=== PATIENT | female | born 1970 | race Caucasian/White ===

== ENCOUNTER → 2020-07-19 | Outpatient (CLI) | payer OTHER ==
[~2020-07-19] MED LIST: CETI10CA PO; CITA10TA8 PO; DOXY100T PO; IPRA15SP NS; LEVO50TA PO; MELA1TAB7 PO
== END | disposition home or self-care (01) ==
LOC: STAR 15:45
PROVIDERS: ATTEND Specialist
DX: Z01.812 Encounter for preprocedural laboratory examination (principal); Z20.828 Contact with and (suspected) exposure to other viral communicable diseases; N81.85 Cervical stump prolapse; Z80.41 Family history of malignant neoplasm of ovary
CPT/HCPCS: 36415; 87635

== ENCOUNTER 2020-07-23 05:45 | Day surgery (SDC) | payer OTHER ==
[~2020-07-23] VITALS: Ht 154.9 cm; Wt 52.0 kg
[2020-07-23] MEDS ORDERED: CHLORHEXIDINE 15 ML UDC MM STA (06:05)
[2020-07-23] MEDS ORDERED: LACTATED RINGERS 1,000 ML IV SCH (06:49)
[2020-07-23] MEDS ORDERED: SCOPOLAMINE 1MG PATCH TD ONE (07:12)
[2020-07-23] MEDS ORDERED: FENTANYL PF 100 MCG/2ML ONE ×6 (07:19→10:23)
[2020-07-23] MEDS ORDERED: PROPOFOL 10 MG/ML, 20ML ONE (07:20)
[2020-07-23] MEDS ORDERED: ROCURONIUM 10MG/ML,5ML ONE ×2 (07:20)
[2020-07-23] MEDS ORDERED: LIDOCAINE-MPF 2% ,5ML ONE (07:20)
[2020-07-23] MEDS ORDERED: ESTROGENS CONJUGATED VAG CRM 0.625MG/1G, 30GM ONE (07:21)
[2020-07-23] MEDS ORDERED: FLUORESCEIN SODIUM 500 MG/5 ML ONE (07:21)
[2020-07-23] MEDS ORDERED: INDIGO CARMINE 0.8%, 5ML ONE (07:21)
[2020-07-23] MEDS ORDERED: BUPIVACAINE/PF 0.25% ONE ×2 (07:21→08:22)
[2020-07-23] MEDS ORDERED: NEOMY/POLYMYXIN B GU IRR. 1 ML ONE (07:22)
[2020-07-23] MEDS ORDERED: MIDAZOLAM 1 MG/ML, 2ML ONE (07:23)
[2020-07-23] MEDS ORDERED: EPHEDRINE 50 MG/ML, 1ML ONE (07:28)
[2020-07-23] MEDS ORDERED: SCOPOLAMINE 1MG PATCH TD SCH (07:30)
[2020-07-23] MEDS ORDERED: CEFAZOLIN 1,000 MG ONE (07:41)
[2020-07-23] MEDS ORDERED: DEXAMETHASONE 4 MG/ML, 1ML ONE ×2 (07:41)
[2020-07-23] MEDS ORDERED: OXYcodone 5 MG/5 ML ORAL.SOL UDC PO PRN (08:00)
[2020-07-23] MEDS ORDERED: PROMETHAZINE 25 MG/ML, 1ML IVPush PRN (08:00)
[2020-07-23] MEDS ORDERED: ONDANSETRON 2MG/ML, 2ML IVPush PRN (08:00)
[2020-07-23] MEDS ORDERED: EPINEPHRINE 1 MG/ML, 1ML ONE (08:22)
[2020-07-23] MEDS ORDERED: NEOSTIGMINE 1 MG/ML, 10ML ONE (08:40)
[2020-07-23] MEDS ORDERED: GLYCOPYRROLATE 0.2MG/1ML, 5ML ONE (08:40)
[2020-07-23] MEDS ORDERED: ONDANSETRON 2MG/ML, 2ML ONE (08:41)
[2020-07-23] MEDS ORDERED: PROPOFOL 10 MG/ML, 50ML ONE (09:46)
[2020-07-23] MEDS: FENTANYL PF 100 MCG/2ML IV PRN ×4 (09:53→10:32)
[2020-07-23] MEDS ORDERED: HYDROcodone/APAP 7.5-325MG/15ML UDC ONE (10:11)
[2020-07-23] MEDS ORDERED: HYDROcodone/APAP 7.5-325MG/15ML UDC PO PRN (10:30)
[2020-07-23] MEDS ORDERED: KETOROLAC 30 MG/1 ML ONE (10:44)
[2020-07-23] MEDS ORDERED: HYDROmorphone 1 MG/ML, 1ML INJ ONE (10:44)
[2020-07-23] MEDS ORDERED: KETOROLAC 30 MG/1 ML IVPush PRN (11:00)
[2020-07-23] MEDS ORDERED: HYDROmorphone 1 MG/ML, 1ML INJ IVPush PRN (11:00)
[2020-07-23] MEDS ORDERED: OXYcodone/APAP 5/325MG TABLET ONE (13:58)
== END 2020-07-23 14:15 | disposition home or self-care (01) ==
LOC: OUT 05:45
PROVIDERS: ATTEND Specialist
DX: N81.85 Cervical stump prolapse (principal); N39.3 Stress incontinence (female) (male); N39.498 Other specified urinary incontinence; N87.9 Dysplasia of cervix uteri, unspecified; G47.00 Insomnia, unspecified; E03.9 Hypothyroidism, unspecified; F32.9 Major depressive disorder, single episode, unspecified; Z88.5 Allergy status to narcotic agent; Z91.040 Latex allergy status; Z88.8 Allergy status to other drugs, medicaments and biological substances; Z88.1 Allergy status to other antibiotic agents; Z98.890 Other specified postprocedural states; Z79.899 Other long term (current) drug therapy; Z72.89 Other problems related to lifestyle; Z82.49 Family history of ischemic heart disease and other diseases of the circulatory system; Z83.3 Family history of diabetes mellitus
CPT/HCPCS: 57283; 57288; 57530; 58661; 88305; C1771; J0690; J1100; J1885; J2250; J2405; J2704; J2710; J3010; J3490; J7120; S2900; J0171